=== PATIENT | male | born 1975 ===

== ENCOUNTER 2023-01-14 13:58 | Emergency (ER) | payer OTHER, SELFPAY ==
--- NOTE | ~2023-01-14 | XR_ITS ---
EXAMINATION: XR chest 2V DATE: 01/14/2023 14:46 INDICATION: Left rib pain. TECHNIQUE: Frontal and lateral views of the chest were obtained. COMPARISON: None. FINDINGS: There is mild elevation of right hemidiaphragm. No pneumonia, pleural effusion, or pneumoth orax. The heart size is normal. There are old healed left rib fractures. IMPRESSION: 1. No acute cardiopulmonary disease. Reviewed, dictated and finalized at location E.
[2023-01-14 14:09] VITALS: BP 112/76; PULSE 106; RESP 16; TEMP 36.6; O2SAT 98
[2023-01-14 14:50] VITALS: O2SAT 98
[2023-01-14 15:04] LABS: Basophils Absolute Auto 0.1 K/mm3 (0.0-0.1); Basophils Percent Auto 0.7 % (0.2-1.2); Eosinophils Absolute Auto 0.1 K/mm3 (0-0.3); Eosinophils Percent Auto 1.1 % (0-4.4); Hematocrit 40.6 % (42.0-52.0); Hemoglobin 15.1 g/dL (14.0-18.0); Immature Granulocyte Absolute 0.09 K/mm3 (0.00-0.031); Immature Granulocyte Percent A 0.7 % (0-0.5); Lymphocytes Absolute Auto 2.78 K/mm3 (0.9-3.2); Lymphocytes Percent Auto 22.3 % (18.3-44.2); Mean Corpuscular HGB Conc 37.2 g/dl (32-36); Mean Corpuscular Hemoglobin 39.5 pg (26-34); Mean Corpuscular Volume 106.3 fl (80-100); Mean Platelet Volume 10.1 fl (7.4-10.4); Monocytes Absolute Auto 1.1 K/mm3 (0.1-0.6); Neutrophils Absolute Auto 8.3 K/mm3 (1.3-6.7); Neutrophils Percent Auto 66.2 % (45.5-73.1); Nucleated Red Blood Cells Perc 0.2 % (0.0-0.2); Platelet Count Result 389 k/mm3 (150-375); Red Blood Count 3.82 M/mm3 (4.6-6.20); Red Cell Distribution Width 24.4 % (11.5-14.5); White Blood Count 12.5 K/mm3 (4.5-10.0)
[2023-01-14 15:09] LABS: Anion Gap 11 mmol/L (8-16); Blood Urea Nitrogen 8 mg/dL (9-20); Calcium 8.8 mg/dL (8.4-10.2); Carbon Dioxide 21 mmol/L (22-30); Chloride 103 mmol/L (98-107); Estimated CRCL calculation 135 ml/min; Estimated Glomerular Filt Rate > 60; Glucose 117 mg/dL (65-110); INR 1.7; Partial Thromboplastin Time 34.5 SECONDS (22.3-36.8); Potassium 2.9 mmol/L (3.4-5.0); Prothrombin Time 21.3 Seconds (11.1-14.7); Sodium 135 mmol/L (137-145)
[2023-01-14 15:22] LABS: Anisocytosis 2+ (NORMAL); Macrocytosis 2+ (NORMAL); Schistocytes None Seen (NORMAL)
--- NOTE | 2023-01-14 16:31 | PC.NURSE ---
patient left room 19 without seeing a provider
--- NOTE | 2023-01-14 16:33 | PC.NURSE ---
pt wheeled to nurses station and states he is not waiting any longer to see a provider. pt wheeled himself to waiting area in stable condition.
== END 2023-01-14 16:36 | disposition left against medical advice (07) ==
PROVIDERS: Emergency Provider Preventive Medicine Aerospace Medicine
DX: R07.81 Pleurodynia (principal)
CPT/HCPCS: 36415; 71046; 80048; 85025; 85610; 85730; 99199